=== PATIENT | male | born 1980 | race Caucasian/White ===

== ENCOUNTER 2018-05-26 00:35 | Emergency (ER) | payer MEDICAID ==
[~2018-05-26] VITALS: Ht 185.4 cm; Wt 99.8 kg
[2018-05-26 00:50] VITALS: BP 149/101
[2018-05-26] MEDS ORDERED: KETOROLAC 30 MG/ML VIAL IM ONE (00:50)
[2018-05-26] MEDS ORDERED: ACETAMINOPHEN EXTRA STRENGTH 500 MG TAB PO ONE (00:50)
[2018-05-26 02:32] VITALS: BP 129/94
== END 2018-05-26 02:31 ==
LOC: MED 00:35
DX: R07.89 Other chest pain (principal); V47.5XXA Car driver injured in collision with fixed or stationary object in traffic accident, initial encounter; Y93.89 Activity, other specified; Y92.89 Other specified places as the place of occurrence of the external cause; Y99.8 Other external cause status
CPT/HCPCS: 70450; 71045; 72125; 93005; 96372; 99284; Q0092; J1885